=== PATIENT | female | born 1950 | race Caucasian/White ===

== ENCOUNTER → 2016-11-17 | Outpatient (CLI) | payer MEDICARE ==
[~2016-11-17] MED LIST: ASPI1TAB93 PO; CALC1TAB12 PO; HYDR-3516 PO; MEDI220T PO; NICOINH INH; ZANT150T2 PO
[2016-11-17 10:06] LABS: AUTOMATED NEUTROPHIL # 4.5 TH/MM3 (1.8-7.7); BASOPHIL # 0.1 TH/MM3 (0-0.2); EOSINOPHIL # 0.2 TH/MM3 (0-0.4); EOSINOPHIL % 2.3 % (0.0-4.0); HEMATOCRIT 43.8 % (35.0-46.0); HEMO FLAGS DIFF FINAL; LYMPH % 23.7 % (9.0-44.0); LYMPHOCYTE # 1.6 TH/MM3 (1.0-4.8); MEAN CELL VOLUME 94.9 FL (80.0-100.0); MEAN CORPUSCULAR HEMOGLOBIN 31.9 PG (27.0-34.0); MEAN CORPUSCULAR HGB CONC 33.7 % (32.0-36.0); MONO % 8.1 % (0.0-8.0); NEUT % 64.9 % (16.0-70.0); PLATELET COUNT 327 TH/MM3 (150-450); RED BLOOD COUNT 4.62 MIL/MM3 (4.00-5.30); RED CELL DISTRIBUTION WIDTH 13.4 % (11.6-17.2); WHITE BLOOD COUNT 6.9 TH/MM3 (4.0-11.0)
[2016-11-17 10:14] LABS: APTT (PATIENT) 28.1 SEC (24.3-30.1); INTERNATIONAL NORMALIZED RATIO 0.9 RATIO; PROTHROMBIN TIME - PATIENT 10.4 SEC (9.8-11.6)
[2016-11-17 10:39] LABS: ANION GAP 8 MEQ/L (5-15); AST (GOT) 19 U/L (15-37); BICARBONATE 27.5 MEQ/L (21.0-32.0); BLOOD UREA NITROGEN 10 MG/DL (7-18); CHLORIDE 104 MEQ/L (98-107); GLOMERULAR FILTRATION RATE 95 ML/MIN (>89); GLUCOSE,FASTING 98 MG/DL (74-99); POTASSIUM 4.3 MEQ/L (3.5-5.1); SODIUM (NA) 139 MEQ/L (136-145)
[2016-11-17 10:41] LABS: ALKALINE PHOSPHATASE 73 U/L (45-117); ALT (GPT) 21 U/L (10-53); TOTAL BILIRUBIN ADULT 0.5 MG/DL (0.2-1.0)
--- NOTE | 2016-11-17 10:52 | RADRPT ---
EXAM DATE/TIME: 11/17/2016 10:44 [facility] COMPARISON: No previous studies available for comparison. INDICATIONS : Evaluate for pneumonia, pneumothorax, or communicable disease. Pre-operative for appendectomy on 11/24. MEDICAL HISTORY : None. SURGICAL HISTORY : None. ENCOUNTER: Initial ACUITY: 1 day PAIN SCORE: 0/10 LOCATION: Bilateral chest FINDINGS: PA and lateral views of the chest demonstrate the lungs to be symmetrically aerated without evidence of mass, infiltrate or effusion. The cardiomediastinal contours are unremarkable. Osseous structure s are intact. CONCLUSION: 1. No acute cardiopulmonary disease. Renny Diggs MD on November 17, 2016 at 10:51 Board Certified Radiologist. This report was verified electronically.
[2016-11-17 11:43] LABS: BLOOD, URINE NEG (NEG); COMMENT (UR) CULTURE INDICATED; CULTURE IF INDICATED CULTURE INDICATED; GLUCOSE,URINE NEG (NEG); HYALINE CAST, URINE 3 /lpf (RARE); KETONE, URINE 10 mg/dL (NEG); MUCUS URINE FEW /lpf (OCC); NITRITE,URINE NEG (NEG); PH, URINE 5.5 (5.0-8.5); SQUAMOUS EPITHELIAL CELL URINE 1 /hpf (0-5); URINE COLOR YELLOW (YELLW/STRAW)
--- NOTE | 2016-11-17 13:26 | EKG ---
Date Performed: 11/17/2016 Time Performed: 09:48:42 PTAGE: 65 years EKG: Sinus rhythm LOW QRS VOLTAGE IN PRECORDIAL LEADS BORDERLINE ECG NO PREVIOUS TRACING DOCTOR: Marshal Nevarez Interpretating Date/Time 11/17/2016 13:22:56
== END ==
LOC: CPRE 09:26
PROVIDERS: ATTEND Colon & Rectal Surgery
DX: Z01.810 Encounter for preprocedural cardiovascular examination (principal); Z01.811 Encounter for preprocedural respiratory examination; Z01.812 Encounter for preprocedural laboratory examination; K38.8 Other specified diseases of appendix; R10.0 Acute abdomen; R94.31 Abnormal electrocardiogram [ECG] [EKG]
CPT/HCPCS: 36415; 71020; 80053; 81001; 85025; 85610; 85730; 87086; 93005

== ENCOUNTER 2016-11-24 11:05 | Day surgery (SDC) | payer MEDICARE ==
[~2016-11-24] VITALS: Ht 157.5 cm; Wt 75.0 kg
[~2016-11-24 11:05] MED LIST changes: -HYDR-3516 PO
[2016-11-24] MEDS ORDERED: LACTATED RINGER'S 1000 ML INJ 1,000 ML IV ONE (11:10)
[2016-11-24] MEDS ORDERED: PROPOFOL 200 MG/20 ML AMP IV ONE (11:10)
[2016-11-24] MEDS ORDERED: ONDANSETRON HCL 4 MG/2 ML VIAL IV PUSH ONE (11:10)
[2016-11-24] MEDS ORDERED: NORMOSOL R INJ 1,000 ML IV ONE (11:10)
[2016-11-24] MEDS ORDERED: NEOSTIGMINE 3 MG/3 ML SYR IV ONE (11:10)
[2016-11-24] MEDS ORDERED: METOPROLOL TARTRATE 25 MG TAB PO PRN (11:30)
[2016-11-24] MEDS ORDERED: LACTATED RINGER'S 1000 ML IV PRN (11:30)
[2016-11-24] MEDS ORDERED: POVIDONE IODINE 5% (ANTISEPSIS KIT) 4 APPLICATIONS EACH NARE PRN (11:30)
[2016-11-24] MEDS ORDERED: SODIUM CHLORID 0.9% 500 ML IV PRN (11:30)
[2016-11-24] MEDS ORDERED: INSULIN HUMAN REGULAR 1,000 UNITS/10 ML VIAL SQ PRN (11:30)
[2016-11-24] MEDS ORDERED: CHLORHEXIDINE GLUCONATE 2 % 1 PACK (2 CLOTHS) TOPICAL PRN (11:30)
[2016-11-24 11:35] VITALS: BP 137/88; PULSE 78; RESP 20; TEMP 98.3; O2SAT 97
[2016-11-24] MEDS ORDERED: ACETAMINOPHEN 1000 MG/100 ML VIAL IV ONE (15:44)
[2016-11-24] MEDS ORDERED: FAMOTIDINE 20 MG/2 ML VIAL ONE (15:45)
[2016-11-24] MEDS ORDERED: fentaNYL CITRATE 250 MCG/5 ML AMP ONE ×2 (15:45→21:45)
[2016-11-24] MEDS ORDERED: DEXAMETHASONE SOD PHOS 4 MG/ML VIAL ONE (15:45)
[2016-11-24] MEDS ORDERED: MIDAZOLAM HCL 2 MG/2 ML VIAL ONE ×2 (15:45→21:45)
[2016-11-24] MEDS ORDERED: metroNIDAZOLE 500 MG INJ 100 ML IV ONE (18:07)
[2016-11-24] MEDS ORDERED: ceFAZolin 2 GM PREMIX 50 ML ONE (18:07)
[2016-11-24] MEDS ORDERED: LIDOCAINE 1%/EPINEPHrine 1:100,000 SOLN 20 ML VIAL ONE (18:09)
[2016-11-24] MEDS ORDERED: ceFAZolin INJ 1,000 MG VIAL IV ONE (18:15)
[2016-11-24] MEDS: D5-NS + KCL 20 MEQ INJ 1,000 ML IV SCH (21:23)
[2016-11-24] MEDS ORDERED: ENALAPRILAT 1.25 MG/ML VIAL IV PRN (21:30)
[2016-11-24] MEDS ORDERED: NALOXONE HCL 0.4 MG/ML AMP IV PRN (21:30)
[2016-11-24] MEDS ORDERED: ACETAMINOPHEN 325 MG TAB PO PRN (21:30)
[2016-11-24] MEDS ORDERED: POTASSIUM CHLOR 40 MEQ PREMIX 100 ML IV PRN (21:30)
[2016-11-24] MEDS ORDERED: SODIUM CHLORIDE 0.9% FLUSH 5 ML FLUSH IVF PRN (21:30)
[2016-11-24] MEDS ORDERED: ENALAPRILAT 2.5 MG/2 ML VIAL IV PRN (21:30)
[2016-11-24] MEDS ORDERED: Post-op Orders (for Pharmacy) MISC XX ONE (21:30)
[2016-11-24] MEDS ORDERED: KETOROLAC TROMETHAMINE 30 MG/ML (IVP) VIAL IVP PRN (21:30)
[2016-11-24] MEDS ORDERED: BENZOCAINE 6 MG/MENTHOL 10 MG LOZENGE BUCCAL PRN (21:30)
[2016-11-24] MEDS ORDERED: diphenhydrAMINE HCL 50 MG/ML VIAL IV PRN (21:30)
[2016-11-24] MEDS ORDERED: POTASSIUM CHLOR 20 MEQ PREMIX 100 ML IV PRN (21:30)
[2016-11-24] MEDS ORDERED: ACETAMINOPHEN/HYDROcodone 325 MG/5 MG TAB PO PRN (21:30)
[2016-11-24] MEDS ORDERED: *ONDANSETRON 4 MG VIAL PERIprocedural Use ONLY ONE (21:38)
[2016-11-24] MEDS ORDERED: MORPHINE SULFATE 4 MG/ML INJ ONE (21:46)
[2016-11-24] MEDS ORDERED: REMOVE OLD PATCH T-DERMAL PRN (22:00)
[2016-11-24 22:01] LABS: AUTOMATED NEUTROPHIL # 11.5 TH/MM3 (1.8-7.7); BASOPHIL % 0.2 % (0.0-2.0); HEMO FLAGS DIFF FINAL; LYMPH % 6.1 % (9.0-44.0); LYMPHOCYTE # 0.8 TH/MM3 (1.0-4.8); MEAN CELL VOLUME 96.8 FL (80.0-100.0); MEAN CORPUSCULAR HEMOGLOBIN 31.8 PG (27.0-34.0); MEAN CORPUSCULAR HGB CONC 32.9 % (32.0-36.0); NEUT % 92.7 % (16.0-70.0); PLATELET COUNT 258 TH/MM3 (150-450); RED BLOOD COUNT 4.13 MIL/MM3 (4.00-5.30); RED CELL DISTRIBUTION WIDTH 13.1 % (11.6-17.2); WHITE BLOOD COUNT 12.4 TH/MM3 (4.0-11.0)
[2016-11-24 22:16] LABS: BICARBONATE 24.1 MEQ/L (21.0-32.0); POTASSIUM 3.9 MEQ/L (3.5-5.1)
[2016-11-24 22:44] VITALS: BP 128/79; PULSE 68; RESP 12; TEMP 97.6; O2SAT 94
[2016-11-24 23:15] VITALS: BP 112/70; PULSE 72; O2SAT 95
[2016-11-25] VITALS (15 sets, daily range): BP systolic 100–126; BP diastolic 55–77; PULSE 62–96; RESP 14–18; TEMP 97.8–98.6; O2SAT 95–98
[2016-11-25] MEDS: MORPHINE SULFATE 8 MG/ML INJ IV PUSH PRN ×2 (00:45→05:49)
[2016-11-25] MEDS: metroNIDAZOLE 500 MG INJ 100 ML IV SCH ×2 (02:38→08:16)
[2016-11-25] MEDS: ONDANSETRON HCL 4 MG/2 ML VIAL IV PRN ×2 (02:44→08:03)
[2016-11-25] MEDS: D5-NS + KCL 20 MEQ INJ 1,000 ML IV SCH ×2 (08:15→10:43)
[2016-11-25] MEDS ORDERED: NICOTINE 21 MG/24 HR PATCH T-DERMAL PRN (09:00)
[2016-11-25] MEDS ORDERED: SODIUM CHLORIDE 0.9% FLUSH 5 ML FLUSH IVF SCH (09:00)
[2016-11-25] MEDS ORDERED: PANTOPRAZOLE SODIUM 40 MG VIAL IVP SCH (09:00)
--- NOTE | 2016-11-25 11:52 | HHI.PR ---
Subjective Remarks POD#1 s/p robotic appendectomy reprts pain and nausea Objective Vital Signs Date Time Temp Pulse Resp B/P Pulse Ox O2 Delivery O2 Flow Rate FiO2 11/25/16 11:00 97.8 78 18 108/62 97 11/25/16 09:08 98 Nasal Cannula 2.00 11/25/16 08:00 98.5 81 18 100/55 97 11/25/16 07:18 76 11/25/16 05:39 98.0 62 16 100/55 98 11/25/16 05:00 80 11/25/16 04:00 97.8 66 14 105/68 95 11/25/16 04:00 80 11/25/16 03:00 82 11/25/16 02:41 96 14 126/77 97 11/25/16 02:00 80 11/25/16 01:00 80 11/25/16 00:47 85 11/25/16 00:00 79 112/69 96 11/24/16 23:15 72 112/70 95 11/24/16 22:44 97.6 68 12 128/79 94 11/24/16 22:00 63 11 151/86 96 Room Air 11/24/16 21:45 69 13 129/80 87 Room Air 11/24/16 21:34 98.0 73 15 129/81 94 Room Air I/O 11/24/16 11/24/16 11/24/16 11/25/16 11/25/16 11/25/16 07:00 15:00 23:00 07:00 15:00 23:00 Intake Total 2500 ml 950 ml Output Total 650 ml Balance 1850 ml 950 ml Intake IV Total 950 ml Other 2500 ml Output Estimated Blood Loss 150 ml Other 500 ml # Voids 1 Result Diagram: 11/24/16215411/24/162154 Objective Remarks Abdomen soft, nondistended, tender Dressings c/d/i Assessment and Plan Assessment and Plan hopefully home later today Anitha Nevarez MD Nov 25, 2016 11:52
[2016-11-25] MEDS ORDERED: HYDR-3516 PO (11:54)
[2016-11-25] MEDS: ACETAMINOPHEN/HYDROcodone 325 MG/5 MG TAB PO PRN ×2 (14:04→18:18)
--- NOTE | 2016-11-25 17:39 | MP ---
cc: ENRRIQUE DELACRUZ M.D., MINA M.D. DATE OF SURGERY 11/24/16 PREOPERATIVE DIAGNOSIS Appendiceal mass. 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 SURGEON MD Roque GREEN CHAINER [place] ANESTHESIA General per ET tube. PROCEDURE Robotic appendectomy. ESTIMATED BLOOD LOSS 100 cc. OPERATIVE INDICATIONS The patient is a 65-year-old female who has had a vague abdominal pain with a negative colonoscopy. CT scan revealed a thickening of the tip of the appendix which was somewhat worrying. OPERATIVE FINDINGS The appendix was firm and was wrapped around the terminal ileum and adherent. Frozen section was positive for muscular hyperplasia but no signs of malignancy. OPERATIVE COURSE The patient was brought to the operating room, and placed in the supine position. After induction of general anesthesia, the skin of the anterior abdominal wall was prepped and draped in the usual sterile fashion. The site was chosen for the camera, being located just to the left and below the umbilicus. A 10/12 port was placed at this location under direct vision, using a laparoscope. CO2 insufflation was started and a brief abdominal survey was performed with no sign of anything that would preclude a laparoscopic/robotic approach. A #5 port was then placed in the suprapubic area and, using electrocautery, a few adhesions of omentum to the right lower quadrant and the right lateral abdominal wall were dissected free using electrocautery. There was a little bit of bleeding from the edge of the omentum initially but this was controlled using electrocautery. Eventually we were able to uncover the appendix and noted that it was wrapped around the terminal ileum with some thickening of the distal point. The thickening did feel somewhat firm and so pathology was called for frozen section. An 8 da Johnie port was placed just under the left costal margin and a 10/12 port was placed just inside the right superior iliac spine. The appendix was slowly and painstakingly dissected off the terminal ileum. The vessels were then dissected free and a white load of [place] Endostapler was placed across the appendiceal vessels, closed, held for 30 seconds, fired and removed. However, after the stapler was opened there was still a little bit of bleeding on the appendiceal vessel stump and laparoscopic clips were placed across this. Dissection continued up to the base of the cecum, clearing the base of the appendix on the cecum to allow for the stapler. Eventually, after I felt that we had nice clear area, a blue load of the [place] Endostapler was placed across the base of the appendix. This was closed, held for 30 seconds, fired and removed. The specimen was then put in an EndoCatch bag, removed from the peritoneal cavity, and sent for frozen section. There was noted to be some bleeding at the appendiceal vessel stump and this area was treated with electrocautery until the bleeding was under control. After a fairly significant time, the frozen section did come back with muscular hyperplasia, but no evidence of malignancy. Some hemostatic snow was placed across the area that had had some bleeding earlier in the case. The staple lines were examined and appeared to be intact and healthy appearing. The omentum was brought down to lay over the top of the specimen and the robot was undocked. The fascia at the 10/12 ports were then closed, using the crossbow device and 0 Vicryl suture. The trocar sites were copiously irrigated with warm normal saline and were closed in an interrupted subcuticular fashion using 3-0 Vicryl. Steri-Strips and sterile dressings were then applied. All sponge, needle and instrument counts were correct and the patient was returned to the post anesthesia care in stable condition. MD CAYDEN Lunsford/TIA /9:29 PM /5:24 PM DARIANA
[2016-11-25] MEDS ORDERED: HEPARIN SODIUM - SQ 10,000 UNITS/ML VIAL SQ SCH (20:30)
== END 2016-11-25 18:43 | disposition home or self-care (01) ==
LOC: HSDC 11:05 → EDSTATUS 13:00 → EDUNIT# 13:00 → HCIN 22:30 → HSDC 11-25 18:43
PROVIDERS: ATTEND Colon & Rectal Surgery
DX: K38.0 Hyperplasia of appendix (principal); R10.9 Unspecified abdominal pain; F17.210 Nicotine dependence, cigarettes, uncomplicated; Z86.010 Personal history of colon polyps
CPT/HCPCS: 00840; 44970; 80048; 85025; 86850; 86900; 86901; 88304; 88331; 88341; 88342; 94150; C9113; J0131; J0690; J1100; J1885; J2250; J2270; J2405; J2710; J3010; J3480; J7120

== ENCOUNTER → 2016-12-15 | Day surgery (SDC) | payer MEDICARE ==
[~2016-12-15] MED LIST changes: +HYDR-3516 PO; +IOHEXOL 180 MG/ML 20 ML VIAL (for RAD DIAG) ONE; +LACTATED RINGER'S 1000 ML INJ 1,000 ML ONE; +LIDOCAINE 1%/EPINEPHrine 1:100,000 SOLN 20 ML VIAL ONE; +LIDOCAINE HCL 1% 50 ML VIAL ONE; +MIDAZOLAM HCL 2 MG/2 ML VIAL ONE; +PROPOFOL 200 MG/20 ML AMP IV ONE; +TRIAMCINOLONE ACETONIDE 40 MG/ML VIAL ONE
--- NOTE | 2016-12-15 14:27 | TN ---
cc: YARELI HARRIS DATE OF SURGERY: 12/15/2016 PREOPERATIVE DIAGNOSIS 1. Osteoarthritis left hip. 2. Arthrofibrosis left hip. POSTOPERATIVE DIAGNOSIS 1. Osteoarthritis left hip. 2. Arthrofibrosis left hip. PROCEDURE: 1. Manipulation left hip under anesthesia. 2. Arthrogram left hip. 3. Use of fluoroscopy for the for needle placement. 4. Injection left hip with Kenalog 40 mg. 5. Intraoperative x-ray left hip, two-view SURGEON Yareli Harris MD. ANESTHESIA TIVA. BLOOD LOSS None. INDICATION This a 65-year-old female who developed progressive arthritis of left hip. She is having progressive loss of motion and pain with activities. She has had conservative care including anti-inflammatory medications. Initially it was felt this represented condition of her low back with a conservative care she is not has not been well now presents for manipulation left hip with an injection. PROCEDURE The plus brought to the operating room size with limited sedation. The left hip was evaluated under anesthesia. Range of motion of the left hip was flexion 80, extension 0 inches rotation 20 X rotation 38, abduction 20, adduction 10 after manipulation flexion was 100, extension 0, internal rotation 20 external rotation 35, adduction 20, abduction 35. The left hip was scrubbed alcohol followed by Hibiclens followed Chloraprep draped sterilely. A time-out had a previously done. A 22-gauge spinal needle was advanced down to the anterior aspect of the left hip joint. The contrast was injected. There was evidence of pitting and erosive changes. There was no leak of contrast. We then injected with 40 mg of Depo-Medrol with 3 cc of 1% lidocaine plain. The hip was run through second range of motion. Intraoperative x-rays were obtained showing findings of the contrast study and no evidence of a fracture. The patient was awakened and taken to the Recovery Room in satisfactory condition. Yareli Harris MD [facility] [place]/ /1:08 PM /2:14 PM
== END | disposition home or self-care (01) ==
LOC: ESDC 11:06
PROVIDERS: ATTEND Orthopaedic Surgery Orthopaedic Surgery of the Spine
DX: M16.12 Unilateral primary osteoarthritis, left hip (principal); M24.652 Ankylosis, left hip
CPT/HCPCS: 01200; 27275; 73502; 76000; J2250; J3010; J3301; J7120; Q9965

== ENCOUNTER → 2017-04-16 | Outpatient (CLI) | payer MEDICARE ==
[~2017-04-16] MED LIST changes: +ASPI325T33 PO; +HYDR-3580 PO; -IOHEXOL 180 MG/ML 20 ML VIAL (for RAD DIAG) ONE; -LACTATED RINGER'S 1000 ML INJ 1,000 ML ONE; -LIDOCAINE 1%/EPINEPHrine 1:100,000 SOLN 20 ML VIAL ONE; -LIDOCAINE HCL 1% 50 ML VIAL ONE; -MIDAZOLAM HCL 2 MG/2 ML VIAL ONE; -PROPOFOL 200 MG/20 ML AMP IV ONE; -TRIAMCINOLONE ACETONIDE 40 MG/ML VIAL ONE
== END ==
LOC: CPRE 11:33
PROVIDERS: ATTEND Orthopaedic Surgery Orthopaedic Surgery of the Spine
DX: Z01.810 Encounter for preprocedural cardiovascular examination (principal); Z01.812 Encounter for preprocedural laboratory examination; Z79.01 Long term (current) use of anticoagulants; M16.12 Unilateral primary osteoarthritis, left hip

== ENCOUNTER 2017-04-26 07:44 | Inpatient (IN) | payer MEDICARE ==
[~2017-04-26] VITALS: Ht 157.5 cm; Wt 77.0 kg
[~2017-04-26 07:44] MED LIST changes: -ASPI325T33 PO; -HYDR-3580 PO
[2017-04-26] MEDS ORDERED: INSULIN HUMAN REGULAR 1,000 UNITS/10 ML VIAL SQ PRN (08:15)
[2017-04-26] MEDS ORDERED: VANCOMYCIN 1000 MG/NS 250 ML (for <70 kg) IV SCH ×2 (08:15)
[2017-04-26] MEDS ORDERED: EXPAREL PERI-ARTICULAR INJECTION (TOTAL VOL. 60 ML) P-ARTICULR SCH ×2 (08:15)
[2017-04-26] MEDS ORDERED: POVIDONE IODINE 5% (ANTISEPSIS KIT) 4 APPLICATIONS EACH NARE PRN (08:15)
[2017-04-26] MEDS ORDERED: SODIUM CHLORID 0.9% 500 ML IV PRN (08:15)
[2017-04-26] MEDS ORDERED: ceFAZolin 2 GM PREMIX 50 ML IV SCH (08:15)
[2017-04-26] MEDS ORDERED: TRANEXAMIC ACID INJ 700 MG in SODIUM CHLORIDE 0.9% INJ 100 ML IV SCH (08:15)
[2017-04-26] MEDS ORDERED: CHLORHEXIDINE GLUCONATE 2 % 1 PACK (2 CLOTHS) TOPICAL PRN (08:15)
[2017-04-26] MEDS ORDERED: POVIDONE IODINE 7.5% SCRUB 118 ML BOTTLE TOPICAL SCH (08:15)
[2017-04-26] MEDS ORDERED: LACTATED RINGER'S 1000 ML IV PRN (08:15)
[2017-04-26] MEDS ORDERED: METOPROLOL TARTRATE 25 MG TAB PO PRN (08:15)
[2017-04-26] MEDS ORDERED: GENTAMICIN SULFATE 80 MG/2 ML VIAL ONE (09:24)
[2017-04-26] MEDS ORDERED: FAMOTIDINE 20 MG/2 ML VIAL ONE (10:13)
[2017-04-26] MEDS ORDERED: ACETAMINOPHEN 1000 MG/100 ML 100 ML IV ONE (10:14)
[2017-04-26] MEDS ORDERED: HYDR-3580 PO (11:06)
[2017-04-26] MEDS ORDERED: ASPI325T33 PO (11:06)
[2017-04-26] MEDS ORDERED: NALOXONE HCL 0.4 MG/ML AMP IV PUSH PRN (11:15)
[2017-04-26] MEDS ORDERED: ACETAMINOPHEN/HYDROcodone 325 MG/7.5 MG TAB PO PRN (11:15)
[2017-04-26] MEDS ORDERED: MISCELLANEOUS NURSING INFORMATION XX PRN (11:15)
[2017-04-26] MEDS ORDERED: MISCELLANEOUS PHARMACY INFORMATION XX ONE (11:15)
[2017-04-26] MEDS ORDERED: MORPHINE SULFATE 8 MG/ML INJ IM PRN (11:15)
[2017-04-26] MEDS ORDERED: Post-op Orders (for Pharmacy) XX ONE (11:55)
[2017-04-26] MEDS ORDERED: MORPHINE SULFATE 30 MG/30 ML PCA IV SCH (12:00)
[2017-04-26] MEDS ORDERED: NICOTROL INH SCH (12:00)
--- NOTE | 2017-04-26 12:37 | PD.OP ---
cc: Santy Pleitez MD Operative Report Date of Surgery: Apr 26, 2017 Preoperative Diagnosis: Osteoarthritis left hip, severe Postoperative Diagnosis: Same Procedure: Left total hip replacement arthroplasty, direct anterior exposure Anesthesia: Gen. Surgeon: Santy Pleitez Slope Hoist Operator(s): DIANA Amos Operation and Findings: EBL: 300 cc INDICATION: This patient presents with significant hip pain related to severe osteoarthritis of the left hip. Despite extensive conservative care this patient continues to be painful and now presents for surgical treatment. NOTE: Heidy Amos PA-C was present for the entire surgical procedure as my phys assistant. In my medical opinion her skill and care was necessary for the proper management of this patient. COMPONENTS: COMPANY: [employer] CUP: [place], 54 mm, 100 series, gription surface LINER: Altrx 32 mm, neutral STEM: [place], standard offset, size 10, hydroxyapatite-coated HEAD: 32 mm, metal, +1, 04/26 taper PROCEDURE: This patient was brought to the operating room and anesthetized in the supine position and positioned on the fracture table with both legs held extended. The left hip and leg was scrubbed with alcohol followed by Hibiclens followed by ChloraPrep and draped sterilely. Antibiotics were given within routine time window and a timeout was done. A 4 inch incision was made starting 2 cm distal and 2 cm lateral to the anterior superior iliac spine. The fascia david was opened longitudinally. The interval between the fascia david and the rectus was opened down to the capsule of the hip joint. Retractors were positioned allowing good visualization of the capsule. This was opened longitudinally and flaps were created. Stay sutures were utilized. Exposure was excellent. The neck was cut at the proper location using fluoroscopy as a guide. The head was removed. Deep retractors were positioned allowing good visualization of the acetabulum. Acetabulum was deepened down to the floor starting with a proper size reamer and reaming up to 53 mm. A trial was utilized. Fluoroscopy was used to check position and confirmed satisfactory alignment. The rim was reamed with a 54 mm reamer and the final cup was positioned in approximately 20 of anteversion and 40-45 of abduction. Position was satisfactory. A single hole eliminator was positioned followed by the final liner. The lifting hook was utilized. The leg was dropped to the floor, maximally externally rotated and brought across the midline. Retractors were positioned. A box osteotome was utilized followed by progressive broaching to the proper stem size. Trial reduction showed excellent alignment and fit. With 60 of external rotation the leg was dropped to the floor without evidence of anterior subluxation. The wound was irrigated. The final stem was inserted and was found to be very stable. The final reduction using the final head. Stability was as previously noted. Intraoperative x-rays were taken. The wound was irrigated copiously. Hemostasis was controlled. Local anesthesia was utilized. The capsule was repaired with #2 Tycron sutures. The fascia dvaid was repaired with running 0 PDS on a loop. Subcutaneous tissue was approximated with 2-0 Vicryl and skin with running intradermal 3-0 Vicryl followed by Steri-Strips. A sterile dressing was applied. The patient was awakened and taken to the recovery room in satisfactory condition. FINDINGS: There was severe osteoarthritis of the left hip with protrusio. We increased the offset by approximately 5 mm and The leg length proximal to the same or increased by 1-2 mm. There was no complication that was appreciated. Stability was excellent. Santy Pleitez MD Apr 26, 2017 12:37
--- NOTE | 2017-04-26 12:39 | HHI.FF ---
Face to Face Verification Diagnosis: (1) Primary osteoarthritis of left hip Physical Therapy Gait training Hip: Total hip Left LE Weight Bearing: WB as tolerated Nursing RN: 3 days/week x 2 weeks Dressing Changes: Do not change dressing I have seen patient Jaleesa Gentile on 04/26/17. My clinical findings support the need for the requested home health care services because: High risk of falls I certify that my clinical findings support that this patient is homebound because: Unsafe to leave home unassisted Santy Pleitez MD Apr 26, 2017 12:39
[2017-04-26] MEDS: LACTATED RINGER'S 1000 ML INJ 1,000 ML IV SCH (13:20)
[2017-04-26] MEDS ORDERED: DO NOT ADM ANY ANTICOAGULANT DRUGS PRN (13:30)
--- NOTE | 2017-04-26 13:32 | RADRPT ---
EXAM DATE/TIME: 04/26/2017 11:28 [facility] COMPARISON: HIP LEFT (AP&LAT 2/3VWS) WO AP PELVIS, December 15, 2016, 12:00. INDICATIONS : Left total hip arthroplasty. MEDICAL HISTORY : None. SURGICAL HISTORY : None. ENCOUNTER: Initial ACUITY: 1 day PAIN SCORE: Non-responsive. LOCATION: Left hip FINDINGS: Left hip arthroplasty with prosthetic components in good position and in anatomic alignment. No signi ficant acute bony fracture. Surgical ander and postsurgical features in the visualized soft tissues . CONCLUSION: 1. Status post left hip arthroplasty in anatomic alignment without significant bony fracture. Renny Diggs MD on April 26, 2017 at 13:29 Board Certified Radiologist. This report was verified electronically.
[2017-04-26] MEDS ORDERED: *diphenhydrAMINE HCL 50 MG/ML VIAL PERIprocedural Use ONLY ONE (13:47)
[2017-04-26] MEDS: PCA - TOTAL MG MORPHINE DELIVERED PER SHIFT SCH ×2 (14:00→22:00)
--- NOTE | 2017-04-26 14:08 | EKG ---
Date Performed: 04/26/2017 Time Performed: 08:52:09 PTAGE: 66 years EKG: Sinus rhythm NORMAL ECG Compared to prior tracing no significant change PREVIOUS TRACING : 11/17/2016 09.48 DOCTOR: Christin Martinez Interpretating Date/Time 04/26/2017 14:05:46
[2017-04-26] MEDS ORDERED: *ONDANSETRON 4 MG VIAL PERIprocedural Use ONLY ONE (15:31)
[2017-04-26] MEDS ORDERED: WALKER/ADULT/FO1 MIS (16:26)
--- NOTE | 2017-04-26 16:44 | HHI.DCPOC ---
Discharge Care Plan Diagnosis: (1) Primary osteoarthritis of left hip Your Health Problems Are: Incision/Drains Inflammation Goals to Promote Your Health * To prevent worsening of your condition and complications * To maintain your health at the optimal level Directions to Meet Your Goals Take your medications as prescribed Follow your dietary instruction Follow activity as directed Keep your appointments as scheduled Take your immunizations and boosters as scheduled If your symptoms worsen call your PCP, if no PCP go to Urgent Care Center or Emergency Room Smoking is Dangerous to Your Health. Avoid second hand smoke Call the 24-hour hour crisis hotline for domestic abuse at Santy Pleitez MD Apr 26, 2017 16:44
--- NOTE | 2017-04-26 16:46 | HHI.DS ---
Discharge Summary Admission Date Apr 26, 2017 at 07:44 Discharge Date: Apr 29, 2017 Admitting Diagnosis Osteoarthritis hip Diagnosis: (1) Primary osteoarthritis of left hip Diagnosis: Principal ICD Codes: M16.12 - Unilateral primary osteoarthritis, left hip Procedures Left total hip replacement on thoracic, direct anterior exposure Brief History This is a 66 year old female patient with significant long-standing osteoarthritis of the left hip. Despite extensive conservative care including injections, medications, altered activities, physical therapy, she continued to be painful and now presents for elective hip replacement arthroplasty PE at Discharge Ambulating with a walker, mild swelling to the incision, no significant drainage. No calf swelling or tenderness Hospital Course This patient was admitted for purpose of elective hip replacement surgery. She was taken to the operating room on the date of admission. She had the above procedure performed under a spinal anesthetic without significant difficulty. She was transferred to the floor postoperatively. She progressed well through physical therapy. She was felt to be a candidate for discharge on postop day # 3 to home Pt Condition on Discharge: Good Discharge Disposition: Discharge Home Discharge Instructions Diet Instructions: As Tolerated, No Restrictions Activities You Can Perform: Weight Bearing as Haley Santy Pleitez MD Apr 26, 2017 16:46
[2017-04-26] MEDS ORDERED: COMMODE 3-IN-11 MIS (16:49)
[2017-04-26 17:40] VITALS: BP 137/62; PULSE 66; RESP 17; TEMP 95.2; O2SAT 95
[2017-04-26] MEDS: ONDANSETRON HCL 4 MG/2 ML VIAL IV PUSH PRN (18:42)
[2017-04-26] MEDS: MAGNESIUM HYDROXIDE SUSP 30 ML CUP PO SCH (20:55)
[2017-04-26] MEDS: ASPIRIN EC 325 MG TABEC PO SCH (20:56)
[2017-04-26] MEDS: SENNOSIDES 8.6 MG TAB PO SCH (20:56)
[2017-04-26 21:41] VITALS: BP 134/90; PULSE 85; RESP 18; TEMP 98.7; O2SAT 96
[2017-04-26] MEDS: ACETAMINOPHEN/HYDROcodone 325 MG/7.5 MG TAB PO PRN (22:32)
[2017-04-27] VITALS: BP 117/68; PULSE 82; RESP 20; TEMP 97; O2SAT 94
[2017-04-27] MEDS: ONDANSETRON HCL 4 MG/2 ML VIAL IV PUSH PRN (01:25)
[2017-04-27] MEDS: LACTATED RINGER'S 1000 ML INJ 1,000 ML IV SCH ×3 (02:36→20:30)
[2017-04-27 04:00] VITALS: BP 118/70; PULSE 76; RESP 20; TEMP 97.1; O2SAT 94
[2017-04-27] MEDS: ACETAMINOPHEN/HYDROcodone 325 MG/7.5 MG TAB PO PRN ×4 (04:48→20:29)
[2017-04-27] MEDS: PCA - TOTAL MG MORPHINE DELIVERED PER SHIFT SCH (06:00)
[2017-04-27 06:21] LABS: HEMATOCRIT 32.5 % (35.0-46.0); REVIEW FLAG FINAL
[2017-04-27 08:00] VITALS: BP 128/87; PULSE 86; RESP 18; TEMP 97.9; O2SAT 96
--- NOTE | 2017-04-27 08:09 | PD.ORT.PN ---
Subjective Subjective Remarks Lying in bed. Mild to moderate discomfort, controlled by medications. Mild anxiety Objective Vitals Vital Signs Date Time Temp Pulse Resp B/P (MAP) Pulse Ox O2 Delivery O2 Flow Rate FiO2 04/27/17 06:00 17 04/27/17 05:21 17 04/27/17 04:00 97.1 76 20 118/70 (86) 94 04/27/17 00:00 97.0 82 20 117/68 (84) 94 04/26/17 23:38 Room Air 04/26/17 22:00 17 04/26/17 21:41 98.7 85 18 134/90 (105) 96 04/26/17 17:40 95.2 66 17 137/62 (87) 95 04/26/17 17:00 86 16 143/66 (91) 95 Room Air 04/26/17 16:00 70 16 119/71 (87) 96 Room Air 04/26/17 15:20 16 04/26/17 15:15 16 04/26/17 15:00 68 16 130/73 (92) 94 Room Air 04/26/17 14:45 51 16 124/68 (86) 100 Nasal Cannula 2 04/26/17 14:15 50 16 128/65 (86) 100 Nasal Cannula 2 04/26/17 14:00 16 04/26/17 13:45 54 16 126/67 (86) 100 Nasal Cannula 2 04/26/17 13:30 56 16 123/66 (85) 100 Nasal Cannula 2 04/26/17 13:15 65 16 111/61 (78) 99 Nasal Cannula 2 04/26/17 13:08 97.5 77 16 109/69 (82) 98 Nasal Cannula 2 04/26/17 08:34 98.4 69 18 147/96 (113) 98 I/O 04/26/17 04/26/17 04/26/17 04/27/17 04/27/17 04/27/17 07:00 15:00 23:00 07:00 15:00 23:00 Intake Total 2100 ml 660 ml 1540 ml Output Total 500 ml 250 ml 900 ml Balance 1600 ml 410 ml 640 ml Intake Oral 660 ml 340 ml IV Total 1200 ml Other 2100 ml Output Urine Total 200 ml 250 ml 900 ml Estimated Blood Loss 300 ml # Voids 1 # Bowel Movements 0 0 Result Diagram: 04/27/17 0601 Procedures Left total hip replacement on thoracic, direct anterior exposure Objective Remarks Dressing dry. No abnormal swelling. No pain with range of motion. No calf tenderness. Sensation distally normal Assessment & Plan Ortho Post Op Day #: 1 Problem List: (1) Primary osteoarthritis of left hip ICD Codes: M16.12 - Unilateral primary osteoarthritis, left hip Assessment and Plan Osteoarthritis left hip. Surgery: Left total hip arthroplasty, direct anterior: POD #1 PLAN: Weightbearing as tolerated [place] for pain Enteric-coated aspirin, 325 mg by mouth twice a day for 30 days for DVT prophylaxis. No dressing change. Discharge to home probably Sunday, with home healthcare and home physical therapy Orders written for Walker. Orthopedically stable Santy Pleitez MD Apr 27, 2017 08:09
[2017-04-27] MEDS: MAGNESIUM HYDROXIDE SUSP 30 ML CUP PO SCH ×2 (08:26→20:30)
[2017-04-27] MEDS: FAMOTIDINE 20 MG TAB PO SCH (08:26)
[2017-04-27] MEDS: ASPIRIN EC 325 MG TABEC PO SCH ×2 (08:26→20:29)
[2017-04-27 12:00] VITALS: BP 115/63; PULSE 84; RESP 18; TEMP 98.5; O2SAT 94
[2017-04-27 16:00] VITALS: BP 142/63; PULSE 84; RESP 18; TEMP 98; O2SAT 95
[2017-04-27 20:00] VITALS: BP 142/80; PULSE 98; RESP 20; TEMP 98.2; O2SAT 95
[2017-04-27] MEDS: SENNOSIDES 8.6 MG TAB PO SCH (20:30)
[2017-04-28] VITALS (7 sets, daily range): BP systolic 125–143; BP diastolic 69–84; PULSE 93–101; RESP 16–20; TEMP 96.5–97.9; O2SAT 93–95
[2017-04-28] MEDS: ACETAMINOPHEN/HYDROcodone 325 MG/7.5 MG TAB PO PRN ×6 (00:15→22:04)
--- NOTE | 2017-04-28 07:29 | PD.ORT.PN ---
Subjective Subjective Remarks POD 2 s/p left anterior YVROSE doing well. pain controlled. has had issues with BP. states was out of bed last night to commode and back Objective Vitals Vital Signs Date Time Temp Pulse Resp B/P (MAP) Pulse Ox O2 Delivery O2 Flow Rate FiO2 04/28/17 04:00 97.6 95 20 129/73 (91) 93 04/28/17 00:00 97.8 101 20 126/69 (88) 94 04/27/17 20:00 98.2 98 20 142/80 (100) 95 04/27/17 16:00 98.0 84 18 142/63 (89) 95 04/27/17 12:00 98.5 84 18 115/63 (80) 94 04/27/17 09:44 16 04/27/17 08:00 97.9 86 18 128/87 (101) 96 I/O 04/27/17 04/27/17 04/27/17 04/28/17 04/28/17 04/28/17 07:00 15:00 23:00 07:00 15:00 23:00 Intake Total 1540 ml 720 ml 340 ml Output Total 900 ml 1350 ml Balance 640 ml -630 ml 340 ml Intake Oral 340 ml 720 ml 340 ml IV Total 1200 ml Output Urine Total 900 ml 1350 ml # Voids 3 # Bowel Movements 0 Result Diagram: 04/27/17 0601 Procedures Left total hip replacement on thoracic, direct anterior exposure Objective Remarks LLE: dressings clean and dry. intact. NVI distally. neg jamaal Assessment & Plan Problem List: (1) Primary osteoarthritis of left hip ICD Codes: M16.12 - Unilateral primary osteoarthritis, left hip Assessment and Plan Osteoarthritis left hip. Surgery: Left total hip arthroplasty, direct anterior: POD #2 PLAN: Weightbearing as tolerated [place] for pain Enteric-coated aspirin, 325 mg by mouth twice a day for 30 days for DVT prophylaxis. No dressing change. if doing well with therapy today, and BP controlled, DC home with [facility] today. if struggling, ok to keep another night Orders written for Walker. Orthopedically stable f/u with Dr Pleitez in 2 weeks Aguila Alvarez/Ethylbenzene Converter Operator PA Apr 28, 2017 07:29
[2017-04-28] MEDS: FAMOTIDINE 20 MG TAB PO SCH (08:29)
[2017-04-28] MEDS: LACTATED RINGER'S 1000 ML INJ 1,000 ML IV SCH ×2 (08:29→22:08)
[2017-04-28] MEDS: ASPIRIN EC 325 MG TABEC PO SCH ×2 (08:29→22:05)
[2017-04-28] MEDS: MAGNESIUM HYDROXIDE SUSP 30 ML CUP PO SCH ×2 (08:29→22:08)
[2017-04-28] MEDS: SENNOSIDES 8.6 MG TAB PO SCH (22:05)
[2017-04-29] MEDS: ACETAMINOPHEN/HYDROcodone 325 MG/7.5 MG TAB PO PRN ×3 (03:16→12:02)
--- NOTE | 2017-04-29 07:08 | PD.ORT.PN ---
Subjective Subjective Remarks POD 3 s/p left anterior YVROSE doing well. pain controlled. states therapy went much better yesterday and feels as if she is improving. states she feels ready to go home today Objective Vitals Vital Signs Date Time Temp Pulse Resp B/P (MAP) Pulse Ox O2 Delivery O2 Flow Rate FiO2 04/28/17 23:33 97.9 94 16 127/76 (93) 95 04/28/17 19:38 97.7 95 17 125/75 (92) 93 04/28/17 16:00 96.5 96 18 135/72 (93) 95 04/28/17 12:00 97.5 97 18 140/84 (102) 94 04/28/17 08:00 143/84 (103) 04/28/17 08:00 97.3 93 18 94 I/O 04/28/17 04/28/17 04/28/17 04/29/17 04/29/17 04/29/17 07:00 15:00 23:00 07:00 15:00 23:00 Intake Total 340 ml 360 ml 360 ml Balance 340 ml 360 ml 360 ml Intake Oral 340 ml 360 ml 360 ml # Voids 3 1 1 # Bowel Movements 0 0 Result Diagram: 04/27/17 0601 Procedures Left total hip replacement on thoracic, direct anterior exposure Objective Remarks LLE: dressings clean and dry. intact. NVI distally. neg jamaal Assessment & Plan Problem List: (1) Primary osteoarthritis of left hip ICD Codes: M16.12 - Unilateral primary osteoarthritis, left hip Assessment and Plan Osteoarthritis left hip. Surgery: Left total hip arthroplasty, direct anterior: POD #3 PLAN: Weightbearing as tolerated [place] for pain Enteric-coated aspirin, 325 mg by mouth twice a day for 30 days for DVT prophylaxis. No dressing change. DC home today with [facility] Orders written for Walker. Orthopedically stable f/u with Dr Pleitez in 2 weeks Aguila Alvarez/First iM[employer] ORELLANA Apr 29, 2017 07:08
[2017-04-29] MEDS: FAMOTIDINE 20 MG TAB PO SCH (07:46)
[2017-04-29] MEDS: MAGNESIUM HYDROXIDE SUSP 30 ML CUP PO SCH (07:47)
[2017-04-29] MEDS: ASPIRIN EC 325 MG TABEC PO SCH (07:50)
[2017-04-29 08:00] VITALS: BP 133/81; PULSE 85; RESP 18; TEMP 97.1; O2SAT 98
[2017-04-29 12:06] VITALS: BP 129/77; PULSE 93; RESP 18; TEMP 97.8; O2SAT 95
[2017-04-29 13:02] VITALS: RESP 18
[2017-04-29] MEDS: LACTATED RINGER'S 1000 ML INJ 1,000 ML IV SCH (14:03)
== END 2017-04-29 15:17 | disposition home health service (06) | DRG 470 ==
LOC: HSDI 07:44 → N06B 17:36
PROVIDERS: ADMIT Orthopaedic Surgery Orthopaedic Surgery of the Spine; ATTEND Orthopaedic Surgery Orthopaedic Surgery of the Spine
PROC: 0SRB02A Replacement of Left Hip Joint with Metal on Polyethylene Synthetic Substitute, Uncemented, Open Approach (ICD-10-PCS; principal; 2017-04-26 10:21)
DX: M16.12 Unilateral primary osteoarthritis, left hip (principal); K21.9 Gastro-esophageal reflux disease without esophagitis; M24.7 Protrusio acetabuli; Z87.891 Personal history of nicotine dependence
CPT/HCPCS: 73502; 76000; 85014; 85018; 86850; 86900; 86901; 86920; 93005; 94150; C9290; J0131; J0690; J1200; J1580; J2270; J2405; J3370; J7050; J7120